=== PATIENT | male | born 1960 | race African-American/Black ===

== ENCOUNTER 2018-03-08 10:23 | Inpatient (IN) | payer OTHER ==
[2018-03-08 12:15] VITALS: BMI 26.4
--- NOTE | 2018-03-08 12:39 | HP ---
CIWA Score - CIWA Score Nausea/Vomitin Muscle Tremors: 2 Anxiety: 2 Agitation: 2 Paroxysmal Sweats: 1-Minimal Palms Moist Orientation: 0-Oriented Tacttile Disturbances: 1-Very Mild Itch/Numbness Auditory Disturbances: 1-Very Mild Visual Disturbances: 0-None Headache: 2-Mild CIWA-Ar Total Score: 13 CIWA Score Nausea/Vomitin Muscle Tremors: 2 Anxiety: 2 Agitation: 2 Paroxysmal Sweats: 1-Minimal Palms Moist Orientation: 0-Oriented Tacttile Disturbances: 1-Very Mild Itch/Numbness Auditory Disturbances: 1-Very Mild Visual Disturbances: 0-None Headache: 2-Mild CIWA-Ar Total Score: 13 - Admission Criteria Patient presents the following: CIWA greater than 12 Admission Criteria Met: Admission criteria met Admission ROS BHS - HPI Chief Complaint: i need help to stop drinking alcohol Allergies/Adverse Reactions: Allergies Allergy/AdvReac Type Severity Reaction Status Date / Time No Known Allergies Allergy Verified 03/08/18 12:16 History of Present Illness: this 57 years old male with alcohol dependence,seeking detox,withdrawal symptom, has been attending out patient program at [facility] but failed,refer for detox history of fatty liver ,had liver biposy in 1997 right inguinal hernia repair at age of 15 syncope alcohol related positive ppd fracture of fx right ankle at age of 12 years treated with uti no significant period of sobriety history of hypokalemia and hypomagnsemia Exam Limitations: No Limitations - Ebola screening Have you traveled outside of the country in the last 21 days: No Have you had contact with anyone from an Ebola affected area: No Have you been sick,other than usual withdrawal symptoms: No Do you have a fever: No - Review of Systems Constitutional: Loss of Appetite, Malaise, Night Sweats, Changes in sleep, Weakness EENT: reports: Nose Congestion Respiratory: reports: No Symptoms reported Cardiac: reports: Palpitations GI: reports: Nausea, Poor Appetite, Vomiting, Abdominal cramping : reports: No Symptoms Reported, Other (treated with uti) Musculoskeletal: reports: Back Pain, Muscle Pain Integumentary: reports: Dryness Endocrine: reports: No Symptoms Reported Hematology: reports: No Symptoms Reported Psychiatric: reports: No Sypmtoms Reported, Judgement Intact, Mood/Affect Appropiate, Orientated x3 Patient History - Patient Medical History Hx Anemia: No Hx Asthma: No Hx Chronic Obstructive Pulmonary Disease (COPD): No Hx Cancer: No Hx Cardiac Disorders: No Hx Congestive Heart Failure: No Hx Hypertension: No Hx Hypercholesterolemia: No Hx Pacemaker: No HX Cerebrovascular Accident: No Hx Seizures: No Hx Dementia: No Hx Diabetes: No Hx Gastrointestinal Disorders: No Hx Liver Disease: Yes (fatty liver had liver biopsy don glenys 1997) Hx Genitourinary Disorders: Yes (uti treated with nitrofurantin) Hx Sexually Transmitted Disorders: No Hx Renal Disease (ESRD): No Hx Thyroid Disease: No Hx Human Immunodeficiency Virus (HIV): No (never been tested,do not want the test done) Hx Hepatitis C: No Hx Depression: No Hx Suicide Attempt: No Hx Bipolar Disorder: No Hx Schizophrenia: No Other Medical History: no suicidal,no homicidal,fx of right ankle at age of 12 years, - Patient Surgical History Past Surgical History: Yes Hx Abdominal Surgery: Yes (right inguinal hernia repair af age of 12 years) Other Surgical History: biposy of liver in 1997 - PPD History Previous Implant?: Yes Documented Results: Positive w/o proof Implanted On Prior R Admission?: No PPD to be Administered?: No - Smoking Cessation Smoking history: Never smoked - Substance & Tx. History Hx Alcohol Use: Yes Hx Substance Use: No Substance Use Type: Alcohol Hx Substance Use Treatment: No - Substances Abused Alcohol-gin Route: Oral Frequency: Daily Amount used: 1 pt. Age of first use: 12 Date of Last Use: 03/07/18 Family Disease History - Family Disease History Family History: Denies Admission Physical Exam BHS - Vital Signs Vital Signs: Vital Signs - 24 hr 03/08/18 12:12 Temperature 97 F L Pulse Rate 112 H Respiratory 20 Rate Blood Pressure 155/97 - Physical General Appearance: Yes: Moderate Distress, Tremorous, Irritable, Sweating, Anxious HEENTM: Yes: Normal ENT Inspection, EDOUARD, Pharynx Normal Respiratory: Yes: Lungs Clear, Normal Breath Sounds, No Respiratory Distress Neck: Yes: Within Normal Limits, Supple, Trachea in good position Breast: Yes: Within Normal Limits Cardiology: Yes: Tachycardia Abdominal: Yes: Within Normal Limits, Normal Bowel Sounds, Non Tender, Flat, Soft Genitourinary: Yes: Other (uti on medication) Back: Yes: Muscle Spasm Extremities: Yes: Normal Inspection, Normal Range of Motion, Tremors Neurological: Yes: rig welder II-XII NML intact, Fully Oriented, Alert, Motor Strength 5/5, Normal Mood/Affect, Normal Response Integumentary: Yes: Dry Lymphatic: Yes: Within Normal Limits - Diagnostic (1) Alcohol dependence with uncomplicated withdrawal Status: Acute (2) Alcohol dependence with uncomplicated intoxication Status: Acute (3) Syncope Status: Acute (4) Fatty liver Status: Chronic (5) UTI (urinary tract infection) Status: Acute (6) History of right inguinal hernia repair Status: Acute (7) History of fracture of right ankle Status: Acute (8) History of liver biopsy Status: Acute (9) Hypomagnesemia Status: Acute (10) History of hypokalemia Status: Acute Cleared for Admission [facility] - Detox or Rehab [facility] Level of Care: Medically Managed Detox Regimen/Protocol: Librium [facility] Breath Alcohol Content Breath Alcohol Content: 0.148
[2018-03-08] MEDS ORDERED: MAG HYDROX/AL HYDROX/SIMETH 30 ML UNIT-DOSE CUP PO PRN (12:50)
[2018-03-08] MEDS ORDERED: hydrOXYzine PAMOATE 50 MG CAPSULE (FP) PO PRN (12:50)
[2018-03-08] MEDS ORDERED: IBUPROFEN 400 MG TABLET (FP) PO PRN (12:50)
[2018-03-08] MEDS ORDERED: guaiFENesin/D-METHORPHAN HB 10 ML UNIT-DOSE CUPS PO PRN (12:50)
[2018-03-08] MEDS ORDERED: chlordiazePOXIDE HCL 25 MG CAPSULE PO PRN (12:50)
[2018-03-08] MEDS ORDERED: P-EPHED 60MG/TRIPROLIDI 2.5MG TABLET PO PRN (12:50)
[2018-03-08] MEDS ORDERED: LOPERAMIDE HCL 2 MG CAPSULE PO PRN (12:50)
[2018-03-08] MEDS ORDERED: MAGNESIUM CITRATE 300 ML BOTTLE PO PRN (12:50)
[2018-03-08] MEDS ORDERED: MENTHOL/PHENOL 1 EACH UD MM PRN (12:50)
[2018-03-08] MEDS ORDERED: MAGNESIUM HYDROX 2400MG/30ML ORAL SUSPENSION 30 ML CUP PO PRN (12:50)
--- NOTE | 2018-03-08 15:10 | EKG ---
Test Reason : Blood Pressure : / mmHG Vent. Rate : 104 BPM Atrial Rate : 104 BPM P-R Int : 142 ms QRS Dur : 098 ms QT Int : 358 ms P-R-T Axes : 060 -13 059 degrees QTc Int : 470 ms SINUS TACHYCARDIA OTHERWISE NORMAL ECG NO PREVIOUS ECGS AVAILABLE Confirmed by BRANDY PEDROZA MD ([id number]) on 03/08/2018 3:09:51 PM Referred By: Confirmed By:BRANDY PEDROZA MD
[2018-03-08] MEDS: chlordiazePOXIDE HCL 25 MG CAPSULE PO SCH ×2 (17:27→22:10)
[2018-03-08] MEDS: ACETAMINOPHEN 325 MG TABLET (FP) PO PRN (17:28)
[2018-03-08] MEDS ORDERED: NITROFURANTOIN MACROCRYSTAL 50 MG CAPSULE (FP) PO SCH (18:00)
[2018-03-08 21:04] LABS: URINE APPEARANCE TURBID; URINE BILIRUBIN NEGATIVE (<2.0 mg/dL); URINE COLOR YELLOW; URINE GLUCOSE (UA) NEGATIVE (NEGATIVE); URINE KETONE NEGATIVE (NEGATIVE); URINE LEUK ESTERASE TRACE (NEGATIVE); URINE NITRITE NEGATIVE (NEGATIVE); URINE PROTEIN NEGATIVE (NEGATIVE); URINE UROBILINOGEN NEGATIVE mg/dL (0.2-1.0)
[2018-03-08] MEDS ORDERED: PATIENT'S OWN MEDICATION (NON-FORMULARY) (Nitrofurantoin Monohyd/M-Cryst [Nitrofurantoin M PO SCH (22:00)
[2018-03-08] MEDS: THIAMINE HCL 100 MG TABLET (FP) PO SCH (22:11)
[2018-03-09] MEDS: chlordiazePOXIDE HCL 25 MG CAPSULE PO SCH ×4 (06:08→22:17)
[2018-03-09] MEDS: PRENATAL VITAMINS W/ FOLIC ACID TABLET (FP) PO SCH (09:53)
[2018-03-09] MEDS: MAGNESIUM OXIDE 400 MG TABLET (FP) PO SCH (09:53)
[2018-03-09 10:41] LABS: HEMATOCRIT 45.3 % (35.4-49); HEMOGLOBIN 14.8 GM/dL (11.7-16.9); MCH 31.1 pg (25.7-33.7); MCHC 32.6 g/dl (32.0-35.9); MEAN CELL VOLUME 95.3 fl (80-96); RBC 4.75 M/mm3 (4.00-5.60); RDW 13.4 % (11.9-15.9); WHITE BLOOD COUNT 8.1 K/mm3 (4.0-10.0)
[2018-03-09 10:44] LABS: ALBUMIN 4.1 g/dl (3.4-5.0); ALK PHOS 85 U/L (45-117); ANION GAP 13 MMOL/L (8-16); BLOOD UREA NITROGEN 10 mg/dL (7-18); CHLORIDE 102 mmol/L (98-107); CO2 25 mmol/L (21-32); CREATININE 0.7 mg/dL (0.55-1.3); GLUCOSE,RANDOM 101 mg/dL (74-106); MAGNESIUM 1.9 mg/dL (1.8-2.4); POTASSIUM 3.7 mmol/L (3.5-5.1); SGOT/AST 64 U/L (15-37); SGPT/ALT 32 U/L (13-61); SODIUM 140 mmol/L (136-145); TOT PROT 8.6 g/dl (6.4-8.2)
--- NOTE | 2018-03-09 12:14 | PN ---
S CIWA - CIWA Score Nausea/Vomitin Muscle Tremors: 4-Moderate,w/Arms Extend Anxiety: 4-Mod. Anxious/Guarded Agitation: 3 Paroxysmal Sweats: 3 Orientation: 0-Oriented Tacttile Disturbances: 1-Very Mild Itch/Numbness Auditory Disturbances: 0-None Visual Disturbances: 1-Very Mild Sensitivity Headache: 0-None Present CIWA-Ar Total Score: 18 BHS Progress Note (SOAP) Subjective: Back pain, tremor, interrupted sleep Objective: 03/09/18 12:09 Last Vital Signs Temp Pulse Resp BP Pulse Ox 98.4 F 98 H 18 126/79 03/09/18 09:37 03/09/18 11:00 03/09/18 11:00 03/09/18 09:37 Laboratory Tests 03/08/18 03/09/18 03/09/18 14:35 05:40 05:40 WBC 8.1 RBC 4.75 Hgb 14.8 Hct 45.3 MCV 95.3 MCH 31.1 MCHC 32.6 RDW 13.4 Sodium 140 Potassium 3.7 Chloride 102 Carbon Dioxide 25 Anion Gap 13 BUN 10 Creatinine 0.7 Creat Clearance w eGFR > 60 Random Glucose 101 Calcium 9.0 Magnesium 1.9 Total Bilirubin 1.0 AST 64 H ALT 32 Alkaline Phosphatase 85 Total Protein 8.6 H Albumin 4.1 Urine Color Yellow Urine Appearance Turbid Urine pH 5.0 Ur Specific [place] 1.023 Urine Protein Negative Urine Glucose (UA) Negative Urine Ketones Negative Urine Blood 1+ H Urine Nitrite Negative Urine Bilirubin Negative Urine Urobilinogen Negative Ur Leukocyte Esterase Trace Urine WBC (Auto) 117 Urine RBC (Auto) 2 RPR Titer 03/09/18 05:40 WBC RBC Hgb Hct MCV MCH MCHC RDW Sodium Potassium Chloride Carbon Dioxide Anion Gap BUN Creatinine Creat Clearance w eGFR Random Glucose Calcium Magnesium Total Bilirubin AST ALT Alkaline Phosphatase Total Protein Albumin Urine Color Urine Appearance Urine pH Ur Specific [place] Urine Protein Urine Glucose (UA) Urine Ketones Urine Blood Urine Nitrite Urine Bilirubin Urine Urobilinogen Ur Leukocyte Esterase Urine WBC (Auto) Urine RBC (Auto) RPR Titer Nonreactive Labs reviewed: abnormal UA Assessment: 03/09/18 12:13 Withdrawal symptoms Noted with abnormal UA Plan: Continue detox Abnormal UA: encouraged PO water intake, repeat UA
[2018-03-09 14:53] LABS: SICKLE CELL SCREEN POSITIVE (NEGATIVE)
[2018-03-09] MEDS: ACETAMINOPHEN 325 MG TABLET (FP) PO PRN (18:03)
[2018-03-09] MEDS: THIAMINE HCL 100 MG TABLET (FP) PO SCH (22:17)
[2018-03-09] MEDS: MELATONIN 5 MG TABLETS PO PRN (22:17)
[2018-03-10] MEDS: chlordiazePOXIDE HCL 25 MG CAPSULE PO SCH ×2 (05:26→10:19)
[2018-03-10] MEDS: PRENATAL VITAMINS W/ FOLIC ACID TABLET (FP) PO SCH (10:19)
[2018-03-10] MEDS: MAGNESIUM OXIDE 400 MG TABLET (FP) PO SCH (10:19)
--- NOTE | 2018-03-10 10:52 | PN ---
[facility] CIWA - CIWA Score Nausea/Vomitin-No Nausea/No Vomiting Muscle Tremors: 2 Anxiety: 3 Agitation: 3 Paroxysmal Sweats: 2 Orientation: 0-Oriented Tacttile Disturbances: 1-Very Mild Itch/Numbness Auditory Disturbances: 0-None Visual Disturbances: 0-None Headache: 0-None Present CIWA-Ar Total Score: 11 BHS Progress Note (SOAP) Subjective: anxious, interrupted sleep Objective: 03/10/18 12:56 Vital Signs Temperature 98.2 F 03/10/18 09:19 Pulse Rate 118 H 03/10/18 09:19 Respiratory Rate 20 03/10/18 09:19 Blood Pressure 112/73 03/10/18 09:19 O2 Sat by Pulse Oximetry (%) Laboratory Last Values WBC 8.1 K/mm3 (4.0-10.0) 03/09/18 05:40 RBC 4.75 M/mm3 (4.00-5.60) 03/09/18 05:40 Hgb 14.8 GM/dL (11.7-16.9) 03/09/18 05:40 Hct 45.3 % (35.4-49) 03/09/18 05:40 MCV 95.3 fl (80-96) 03/09/18 05:40 MCH 31.1 pg (25.7-33.7) 03/09/18 05:40 MCHC 32.6 g/dl (32.0-35.9) 03/09/18 05:40 RDW 13.4 % (11.9-15.9) 03/09/18 05:40 Plt Count Customer Sales Advisor 03/09/18 05:40 Sickle Cell Screen Positive (NEGATIVE) 03/09/18 05:40 Sodium 140 mmol/L (136-145) 03/09/18 05:40 Potassium 3.7 mmol/L (3.5-5.1) 03/09/18 05:40 Chloride 102 mmol/L (98-107) 03/09/18 05:40 Carbon Dioxide 25 mmol/L (21-32) 03/09/18 05:40 Anion Gap 13 MMOL/L (8-16) 03/09/18 05:40 BUN 10 mg/dL (7-18) 03/09/18 05:40 Creatinine 0.7 mg/dL (0.55-1.3) 03/09/18 05:40 Creat Clearance w eGFR > 60 (>60) 03/09/18 05:40 Random Glucose 101 mg/dL (74-106) 03/09/18 05:40 Calcium 9.0 mg/dL (8.5-10.1) 03/09/18 05:40 Magnesium 1.9 mg/dL (1.8-2.4) 03/09/18 05:40 Total Bilirubin 1.0 mg/dL (0.2-1) 03/09/18 05:40 AST 64 U/L (15-37) H 03/09/18 05:40 ALT 32 U/L (13-61) 03/09/18 05:40 Alkaline Phosphatase 85 U/L (45-117) 03/09/18 05:40 Total Protein 8.6 g/dl (6.4-8.2) H 03/09/18 05:40 Albumin 4.1 g/dl (3.4-5.0) 03/09/18 05:40 Urine Color Yellow 03/08/18 14:35 Urine Appearance Turbid 03/08/18 14:35 Urine pH 5.0 (5.0-8.0) 03/08/18 14:35 Ur Specific [place] 1.023 (1.010-1.035) 03/08/18 14:35 Urine Protein Negative (NEGATIVE) 03/08/18 14:35 Urine Glucose (UA) Negative (NEGATIVE) 03/08/18 14:35 Urine Ketones Negative (NEGATIVE) 03/08/18 14:35 Urine Blood 1+ (NEGATIVE) H 03/08/18 14:35 Urine Nitrite Negative (NEGATIVE) 03/08/18 14:35 Urine Bilirubin Negative (<2.0 mg/dL) 03/08/18 14:35 Urine Urobilinogen Negative mg/dL (0.2-1.0) 03/08/18 14:35 Ur Leukocyte Esterase Trace (NEGATIVE) 03/08/18 14:35 Urine WBC (Auto) 117 /hpf (3-5) 03/08/18 14:35 Urine RBC (Auto) 2 /hpf (0-3) 03/08/18 14:35 RPR Titer Nonreactive (NONREACTIVE) 03/09/18 05:40 Aox3 no distress ambulatory in the unit, full ROM Assessment: 03/10/18 12:56 withdrawal sx Plan: increase fluids continue detox continue to monitor
[2018-03-10] MEDS: chlordiazePOXIDE 5 MG CAPSULE PO SCH ×2 (17:12→22:35)
[2018-03-10 19:27] LABS: URINE APPEARANCE CLEAR; URINE BILIRUBIN NEGATIVE (<2.0 mg/dL); URINE COLOR YELLOW; URINE GLUCOSE (UA) NEGATIVE (NEGATIVE); URINE KETONE NEGATIVE (NEGATIVE); URINE LEUK ESTERASE TRACE (NEGATIVE); URINE NITRITE NEGATIVE (NEGATIVE); URINE PROTEIN NEGATIVE (NEGATIVE); URINE UROBILINOGEN 4.0 E.U/dl mg/dL (0.2-1.0)
[2018-03-10 19:45] LABS: EPI CELLS RARE /HPF (FEW)
[2018-03-10] MEDS: MELATONIN 5 MG TABLETS PO PRN (22:35)
[2018-03-10] MEDS: THIAMINE HCL 100 MG TABLET (FP) PO SCH (22:35)
[2018-03-11] MEDS: chlordiazePOXIDE 5 MG CAPSULE PO SCH ×2 (05:55→10:08)
[2018-03-11] MEDS: MAGNESIUM OXIDE 400 MG TABLET (FP) PO SCH (10:08)
[2018-03-11] MEDS: PRENATAL VITAMINS W/ FOLIC ACID TABLET (FP) PO SCH (10:08)
--- NOTE | 2018-03-11 16:21 | PN ---
BHS Progress Note (SOAP) Subjective: Denies any symptoms; patient is anxious Objective: 03/11/18 16:20 Last Vital Signs Temp Pulse Resp BP Pulse Ox 96.7 F L 114 H 20 134/87 03/11/18 14:01 03/11/18 14:01 03/11/18 14:01 03/11/18 14:01 Laboratory Tests 03/08/18 03/09/18 03/09/18 14:35 05:40 05:40 WBC 8.1 RBC 4.75 Hgb 14.8 Hct 45.3 MCV 95.3 MCH 31.1 MCHC 32.6 RDW 13.4 Plt Count Clinical Rehab Liaison Sickle Cell Screen Positive Sodium 140 Potassium 3.7 Chloride 102 Carbon Dioxide 25 Anion Gap 13 BUN 10 Creatinine 0.7 Creat Clearance w eGFR > 60 Random Glucose 101 Calcium 9.0 Magnesium 1.9 Total Bilirubin 1.0 AST 64 H ALT 32 Alkaline Phosphatase 85 Total Protein 8.6 H Albumin 4.1 Urine Color Yellow Urine Appearance Turbid Urine pH 5.0 Ur Specific [place] 1.023 Urine Protein Negative Urine Glucose (UA) Negative Urine Ketones Negative Urine Blood 1+ H Urine Nitrite Negative Urine Bilirubin Negative Urine Urobilinogen Negative Ur Leukocyte Esterase Trace Urine WBC (Auto) 117 Urine RBC (Auto) 2 Ur Epithelial Cells RPR Titer 03/09/18 03/10/18 05:40 08:39 WBC RBC Hgb Hct MCV MCH MCHC RDW Plt Count Sickle Cell Screen Sodium Potassium Chloride Carbon Dioxide Anion Gap BUN Creatinine Creat Clearance w eGFR Random Glucose Calcium Magnesium Total Bilirubin AST ALT Alkaline Phosphatase Total Protein Albumin Urine Color Yellow Urine Appearance Clear Urine pH 7.0 D Ur Specific [place] 1.008 L Urine Protein Negative Urine Glucose (UA) Negative Urine Ketones Negative Urine Blood Negative Urine Nitrite Negative Urine Bilirubin Negative Urine Urobilinogen 4.0 e.u/dl Ur Leukocyte Esterase Trace Urine WBC (Auto) 3 Urine RBC (Auto) <1 Ur Epithelial Cells Rare RPR Titer Nonreactive Labs reviewed Assessment: 03/11/18 16:20 Withdrawal symptoms Plan: Continue detox Encouraged PO water intake
[2018-03-11] MEDS: chlordiazePOXIDE HCL 10 MG CAPSULE PO SCH ×2 (17:43→22:11)
[2018-03-11] MEDS: THIAMINE HCL 100 MG TABLET (FP) PO SCH (22:12)
[2018-03-11] MEDS: MELATONIN 5 MG TABLETS PO PRN (22:12)
[2018-03-12] MEDS: chlordiazePOXIDE HCL 10 MG CAPSULE PO SCH (05:33)
[2018-03-12 06:13] VITALS: PULSE 87
[2018-03-12 09:21] VITALS: BP 130/78; TEMP 96.7
--- NOTE | 2018-03-12 13:07 | DS ---
[facility] Detox Discharge Summary Admission Date: 03/08/18 Discharge Date: 03/12/18 - History Additional Comments: Pt completed detox. D/c home, will do aftercare by attending outpatient meetings. - Physical Exam Results Vital Signs: Vital Signs Temperature 96.7 F L 03/12/18 09:20 Pulse Rate 87 03/12/18 09:20 Respiratory Rate 18 03/12/18 09:20 Blood Pressure 130/78 03/12/18 09:20 O2 Sat by Pulse Oximetry (%) Pertinent Admission Physical Exam Findings: withdrawal sx - Treatment Hospital Course: Detox Protocol Followed, Detoxed Safely, Responded well, Discharged Condition Good, Rehab Referral Accepted - Medication Discharge Medications: Ambulatory Orders Acetaminophen [Tylenol] 325 mg PO DAILY PRN 03/08/18 Folic Acid - 1 mg PO DAILY 03/08/18 Magnesium Oxide [Mag-Ox -] 400 mg PO DAILY 03/08/18 Nitrofurantoin Monohyd/M-Cryst [Nitrofurantoin Harnett-Mcr 100 mg] 100 mg PO BID Potassium Chloride [Klor-Con 10] 10 meq PO DAILY 03/08/18 Thiamine HCl [Vitamin B1] 100 mg PO DAILY 03/08/18 - AMA Did Patient Leave Against Medical Advice: No
== END 2018-03-12 09:45 | disposition home or self-care (01) | DRG 775 ==
LOC: YASAS 10:23 → Y3N 12:51
PROC: HZ2ZZZZ Detoxification Services for Substance Abuse Treatment (ICD-10-PCS; principal; 2018-03-08)
DX: F10.230 Alcohol dependence with withdrawal, uncomplicated (principal); F10.220 Alcohol dependence with intoxication, uncomplicated; K76.0 Fatty (change of) liver, not elsewhere classified; R82.90 Unspecified abnormal findings in urine; R76.11 Nonspecific reaction to tuberculin skin test without active tuberculosis; R00.0 Tachycardia, unspecified; N39.0 Urinary tract infection, site not specified; E83.42 Hypomagnesemia
CPT/HCPCS: 36415; 71046-TC-FY; 80053; 81003; 81015; 83021; 83735; 85027; 85660; 86593; 93005; 93010

== ENCOUNTER 2018-03-26 13:21 | Inpatient (IN) | payer OTHER ==
[2018-03-26 13:45] VITALS: BMI 26.4
--- NOTE | 2018-03-26 18:17 | HP ---
CIWA Score - Admission Criteria [facility] Guidelines: Admission for Medically Managed Detox: Requires at least one of the followin. CIWA greater than 12 2. Seizures within the past 24 hours 3. Delirium tremens within the past 24 hours 4. Hallucinations within the past 24 hours 5. Acute intervention needed for co occurring medical disorder 6. Acute intervention needed for co occurring psychiatric disorder 7. Severe withdrawal that cannot be handled at a lower level of care (continued vomiting, continued diarrhea, abnormal vital signs) requiring intravenous medication and/or fluids 8. Admission ROS S - HPI Chief Complaint: States he is here for rehab- says he was asked by [facility] to come to rehab b/c they found alcohol in his urine. Pt was referred to [facility] for DWI. Pt was here for detox about 2 weeks ago- since discharge pt states using 1/2 pint of gin/day, prior to detox pt was drinking 1 pint a day. Pt states he is not in withdrawal and his last drink was yesterday. Has never had seizures or DT 's from alcohol use Utox- positive benzo (prior detox), ZOHAIB- neg DUR/ISTOP: negative for controlled substances Allergies/Adverse Reactions: Allergies Allergy/AdvReac Type Severity Reaction Status Date / Time No Known Allergies Allergy Verified 03/26/18 17:01 - Ebola screening Have you been sick,other than usual withdrawal symptoms: No - Review of Systems Constitutional: No Symptoms Reported EENT: reports: No Symptoms Reported Respiratory: reports: No Symptoms reported Cardiac: reports: No Symptoms Reported GI: reports: No Symptoms Reported : reports: No Symptoms Reported Musculoskeletal: reports: Back Pain Integumentary: reports: No Symptoms Reported Neuro: reports: No Symptoms reported Endocrine: reports: No Symptoms Reported Hematology: reports: No Symptoms Reported Psychiatric: reports: No Sypmtoms Reported Patient History - Patient Medical History Hx Anemia: No Hx Asthma: No Hx Chronic Obstructive Pulmonary Disease (COPD): No Hx Cancer: No Hx Cardiac Disorders: No Hx Congestive Heart Failure: No Hx Hypertension: No Hx Hypercholesterolemia: No Hx Pacemaker: No HX Cerebrovascular Accident: No Hx Seizures: No Hx Dementia: No Hx Diabetes: No Hx Gastrointestinal Disorders: No Hx Liver Disease: Yes (fatty liver had liver biopsy fadia veronica 1997) Hx Genitourinary Disorders: No Hx Sexually Transmitted Disorders: No Hx Renal Disease (ESRD): No Hx Thyroid Disease: No Hx Human Immunodeficiency Virus (HIV): No (never been tested,do not want the test done) Hx Hepatitis C: No Hx Depression: No Hx Suicide Attempt: No Hx Bipolar Disorder: No Hx Schizophrenia: No - Patient Surgical History Past Surgical History: Yes Hx Neurologic Surgery: No Hx Cataract Extraction: No Hx Cardiac Surgery: No Hx Lung Surgery: No Hx Breast Surgery: No Hx Breast Biopsy: No Hx Abdominal Surgery: Yes (right inguinal hernia repair af age of 12 years) Hx Appendectomy: No Hx Cholecystectomy: No Hx Genitourinary Surgery: No Hx Section: No Hx Orthopedic Surgery: No Other Surgical History: biposy of liver in 1997 Anesthesia Reaction: No - PPD History Previous Implant?: Yes Documented Results: Positive w/proof Implanted On Prior R Admission?: No - Smoking Cessation Smoking history: Never smoked Have you smoked in the past 12 months: No If you are a former smoker, when did you quit?: 15 years ago Hx Chewing Tobacco Use: No - Substances Abused Alcohol Route: Oral Frequency: Daily Amount used: 1/2 PINT GIN Age of first use: 18 Date of Last Use: 03/25/18 Family Disease History - Family Disease History Family Disease History: Other: Father (alcoholic), Mother (alcoholic) Admission Physical Exam BHS - Vital Signs Vital Signs: Vital Signs - 24 hr 03/26/18 13:43 Temperature 99.5 F Pulse Rate 119 H Respiratory 18 Rate Blood Pressure 148/92 - Physical General Appearance: Yes: Within Normal Limits HEENTM: Yes: Within Normal Limits, EOMI Respiratory: Yes: Within Normal Limits Neck: Yes: Within Normal Limits Breast: Yes: Breast Exam Deferred Cardiology: Yes: Within Normal Limits Abdominal: Yes: Within Normal Limits, Non Tender, Protuberent Genitourinary: Yes: Within Normal Limits (pt with diaper on- b/d urinary leaks per pt), Other Back: Yes: Within Normal Limits Musculoskeletal: Yes: Within Normal Limits, full range of Motion, Gait Steady Extremities: Yes: Within Normal Limits, Other (hyperpigmented, thickened toenails) Integumentary: Yes: Within Normal Limits Lymphatic: Yes: Within Normal Limits BHS Breath Alcohol Content Breath Alcohol Content: 0 Urine Drug Screen - Results Drug Screen Negative: No Urine Drug Screen Results: BZO-Benzodiazepines Inpatient Rehab Admission - Initial Determination Are CD services needed?: Yes Free of communicable disease: Yes Not in need of hospitalization: Yes - Rehab Admission Criteria Previous failed treatment: Yes Poor recovery environment: Yes Comorbidities: Yes Lacks judgement: No Patient is meeting Inpatient Rehab admission criteria:: Yes (Pt has an alcohol use disorder- )
[2018-03-26] MEDS ORDERED: LOPERAMIDE HCL 2 MG CAPSULE PO PRN (18:24)
[2018-03-26] MEDS ORDERED: MENTHOL/PHENOL 1 EACH UD MM PRN (18:24)
[2018-03-26] MEDS ORDERED: MAGNESIUM HYDROX 2400MG/30ML ORAL SUSPENSION 30 ML CUP PO PRN (18:24)
[2018-03-26] MEDS ORDERED: MAGNESIUM CITRATE 300 ML BOTTLE PO PRN (18:24)
[2018-03-26] MEDS ORDERED: P-EPHED 60MG/TRIPROLIDI 2.5MG TABLET PO PRN (18:24)
[2018-03-26] MEDS ORDERED: MAG HYDROX/AL HYDROX/SIMETH 30 ML UNIT-DOSE CUP PO PRN (18:24)
[2018-03-26] MEDS ORDERED: guaiFENesin/D-METHORPHAN HB 10 ML UNIT-DOSE CUPS PO PRN (18:24)
[2018-03-26] MEDS: NITROFURANTOIN MACROCRYSTAL 50 MG CAPSULE (FP) PO SCH ×2 (20:40→23:41)
[2018-03-26] MEDS: THIAMINE HCL 100 MG TABLET (FP) PO SCH (21:20)
[2018-03-27 02:58] LABS: URINE APPEARANCE CLEAR; URINE BILIRUBIN NEGATIVE (<2.0 mg/dL); URINE COLOR YELLOW; URINE GLUCOSE (UA) NEGATIVE (NEGATIVE); URINE KETONE TRACE (NEGATIVE); URINE LEUK ESTERASE 1+ (NEGATIVE); URINE NITRITE NEGATIVE (NEGATIVE); URINE PROTEIN 1+ (NEGATIVE); URINE UROBILINOGEN NEGATIVE mg/dL (0.2-1.0)
[2018-03-27 03:11] LABS: EPI CELLS RARE /HPF (FEW); URINE MUCUS RARE
[2018-03-27] MEDS: IBUPROFEN 400 MG TABLET (FP) PO PRN (06:23)
[2018-03-27] MEDS: PRENATAL VITAMINS W/ FOLIC ACID TABLET (FP) PO SCH (10:27)
[2018-03-27] MEDS: NITROFURANTOIN MACROCRYSTAL 50 MG CAPSULE (FP) PO SCH ×4 (10:27→21:17)
--- NOTE | 2018-03-27 10:36 | HP ---
Psychiatrist Admission - Data Date of interview: 03/27/18 Admission source: [facility] Identifying data: Patient is a 57 year old male, father of two, unemployed, is currently homeless and is supported by [facility]. This is patient's first admission to rehab at [facility]. Patient admitted to for alcohol dependence. Medical History: fatty liver had liver biopsy done in 1997, right inguinal hernia repair af age of 12 years Psychiatric History: Patient denies h/o psychiatric hospitalization, outpatient care, and suicide attempt. Physical/Sexual Abuse/Trauma History: denies. Vital Signs: Vital Signs - 24 hr 03/26/18 03/27/18 03/27/18 13:43 00:30 03:30 Temperature 99.5 F Pulse Rate 119 H Respiratory 18 18 18 Rate Blood Pressure 148/92 03/27/18 06:46 Temperature 98.3 F Pulse Rate 106 H Respiratory 18 Rate Blood Pressure 137/90 Allergies/Adverse Reactions: Allergies Allergy/AdvReac Type Severity Reaction Status Date / Time No Known Allergies Allergy Verified 03/26/18 17:01 Date of last physical exam: 03/26/18 Concur with the findings of this exam: Yes - Substance Abuse/Tx History Hx Alcohol Use: Yes (1/2 pint daily) Hx Substance Use: No Hx Substance Use Treatment: No Mental Status Exam - Mental Status Exam Alert and Oriented to: Time, Place, Person Cognitive Function: Good Patient Appearance: Well Groomed Mood: Hopeful, Euthymic Affect: Appropriate, Mood Congruent Patient Behavior: Appropriate, Cooperative Speech Pattern: Clear, Appropriate Voice Loudness: Normal Thought Process: Intact, Goal Oriented Thought Disorder: Not Present Hallucinations: Denies Suicidal Ideation: Denies Homicidal Ideation: Denies Insight/Judgement: Poor Sleep: Fair Appetite: Fair Muscle strength/Tone: Normal Gait/Station: Normal Psychiatric Findings - Problem List ([place] 1, 2,3) (1) Alcohol dependence Current Visit: Yes Status: Acute (2) Alcohol use disorder Current Visit: Yes Status: Acute - Initial Treatment Plan Initial Treatment Plan: Psychoeducation provided. Detoxification in progress. Observation.
[2018-03-27] MEDS: POTASSIUM CHLORIDE TABS 10 MEQ TABLET.ER (FP) PO SCH (11:59)
[2018-03-27 15:15] LABS: HEMATOCRIT 44.3 % (35.4-49); HEMOGLOBIN 15.2 GM/dL (11.7-16.9); MCHC 34.3 g/dl (32.0-35.9); MEAN CELL VOLUME 93.3 fl (80-96); MEAN PLT VOLUME 9.4 fl (7.5-11.1); PLATELET COUNT 184 K/MM3 (134-434); RBC 4.75 M/mm3 (4.00-5.60); RDW 13.5 % (11.9-15.9)
[2018-03-27 15:26] LABS: ALBUMIN 4.1 g/dl (3.4-5.0); ALK PHOS 73 U/L (45-117); ANION GAP 10 MMOL/L (8-16); BILIRUBIN,TOTAL 0.9 mg/dL (0.2-1); BLOOD UREA NITROGEN 10 mg/dL (7-18); CALCIUM 9.6 mg/dL (8.5-10.1); CHLORIDE 94 mmol/L (98-107); CO2 30 mmol/L (21-32); GLUCOSE,RANDOM 118 mg/dL (74-106); SGOT/AST 39 U/L (15-37); SGPT/ALT 28 U/L (13-61); SODIUM 135 mmol/L (136-145); TOT PROT 9.2 g/dl (6.4-8.2)
[2018-03-27] MEDS: THIAMINE HCL 100 MG TABLET (FP) PO SCH (21:14)
[2018-03-27] MEDS: ACETAMINOPHEN 325 MG TABLET (FP) PO PRN (21:15)
[2018-03-27] MEDS: MELATONIN 5 MG TABLETS PO PRN (21:16)
[2018-03-28] MEDS: ACETAMINOPHEN 325 MG TABLET (FP) PO PRN ×3 (06:16→21:12)
[2018-03-28] MEDS: PRENATAL VITAMINS W/ FOLIC ACID TABLET (FP) PO SCH (10:01)
[2018-03-28] MEDS: NITROFURANTOIN MACROCRYSTAL 50 MG CAPSULE (FP) PO SCH ×4 (10:01→21:11)
[2018-03-28] MEDS: POTASSIUM CHLORIDE TABS 10 MEQ TABLET.ER (FP) PO SCH (10:02)
[2018-03-28 11:20] LABS: RPR REACTIVE 1:2 (NONREACTIVE)
--- NOTE | 2018-03-28 11:37 | PN ---
[facility] Progress Note Note: RPR REACTIVE AND MHA PENDING Laboratory Tests 03/26/18 03/27/18 03/27/18 23:50 09:53 09:53 WBC 7.0 RBC 4.75 Hgb 15.2 Hct 44.3 MCV 93.3 MCH 32.0 MCHC 34.3 RDW 13.5 Plt Count 184 MPV 9.4 Sodium 135 L Potassium 4.0 Chloride 94 L Carbon Dioxide 30 Anion Gap 10 BUN 10 Creatinine 1.0 Creat Clearance w eGFR > 60 Random Glucose 118 H Calcium 9.6 Total Bilirubin 0.9 AST 39 H ALT 28 Alkaline Phosphatase 73 Total Protein 9.2 H Albumin 4.1 Urine Color Yellow Urine Appearance Clear Urine pH 5.0 D Ur Specific [place] 1.024 Urine Protein 1+ H Urine Glucose (UA) Negative Urine Ketones Trace H Urine Blood Negative Urine Nitrite Negative Urine Bilirubin Negative Urine Urobilinogen Negative Ur Leukocyte Esterase 1+ H Urine WBC (Auto) 31 Urine RBC (Auto) 1 Ur Epithelial Cells Rare Urine Mucus Rare RPR Titer 03/27/18 09:53 WBC RBC Hgb Hct MCV MCH MCHC RDW Plt Count MPV Sodium Potassium Chloride Carbon Dioxide Anion Gap BUN Creatinine Creat Clearance w eGFR Random Glucose Calcium Total Bilirubin AST ALT Alkaline Phosphatase Total Protein Albumin Urine Color Urine Appearance Urine pH Ur Specific [place] Urine Protein Urine Glucose (UA) Urine Ketones Urine Blood Urine Nitrite Urine Bilirubin Urine Urobilinogen Ur Leukocyte Esterase Urine WBC (Auto) Urine RBC (Auto) Ur Epithelial Cells Urine Mucus RPR Titer Reactive 1:2 H D MHA PENDING PT WAS NONREACTIVE ON 03/09/18 WHILE IN DETOX. PT CAME BACK TO REHAB 03/26/18 AND RPR IS REACTIVE 1:2. FOLLOW UP WITH [facility] ADDENEDUM:FOLLOW UP TO ABOVE INFORMATION, PT REPORTS HE HAS A HX OF SYPHILIS ABOUT 30 YRS AND RECIEVED TREATMENT-ONE SHOT IN A HOSPITAL IN [place] AND MOVED TO [facility] THEN WAS REFERRED TO [facility] WHERE HE STATES HE RECEIVED 3 SHOTS. DENIES RE- EXPOSURE OR ANY SYMPTOMS..
[2018-03-28 14:01] LABS: TREPONEMA ANTIBODY REACTIVE (NONREACTIVE)
--- NOTE | 2018-03-28 15:44 | EKG ---
Test Reason : Blood Pressure : / mmHG Vent. Rate : 090 BPM Atrial Rate : 090 BPM P-R Int : 156 ms QRS Dur : 090 ms QT Int : 392 ms P-R-T Axes : 053 -03 048 degrees QTc Int : 479 ms NORMAL SINUS RHYTHM NORMAL ECG WHEN COMPARED WITH ECG OF 08-MAR-2018 13:57, NO SIGNIFICANT CHANGE WAS FOUND Confirmed by LEILANI CASILLAS MD ([id number]) on 03/28/2018 3:44:13 PM Referred By: Confirmed By:LEILANI CASILLAS MD
[2018-03-28] MEDS: MELATONIN 5 MG TABLETS PO PRN (21:11)
[2018-03-28] MEDS: THIAMINE HCL 100 MG TABLET (FP) PO SCH (21:11)
[2018-03-29] MEDS: IBUPROFEN 400 MG TABLET (FP) PO PRN ×3 (06:17→21:19)
[2018-03-29] MEDS: POTASSIUM CHLORIDE TABS 10 MEQ TABLET.ER (FP) PO SCH (09:50)
[2018-03-29] MEDS: NITROFURANTOIN MACROCRYSTAL 50 MG CAPSULE (FP) PO SCH ×4 (09:50→21:17)
[2018-03-29] MEDS: PRENATAL VITAMINS W/ FOLIC ACID TABLET (FP) PO SCH (09:50)
[2018-03-29] MEDS: THIAMINE HCL 100 MG TABLET (FP) PO SCH (21:18)
[2018-03-30] MEDS: NITROFURANTOIN MACROCRYSTAL 50 MG CAPSULE (FP) PO SCH ×4 (09:44→21:19)
[2018-03-30] MEDS: PRENATAL VITAMINS W/ FOLIC ACID TABLET (FP) PO SCH (09:44)
[2018-03-30] MEDS: POTASSIUM CHLORIDE TABS 10 MEQ TABLET.ER (FP) PO SCH (09:44)
[2018-03-30] MEDS: IBUPROFEN 400 MG TABLET (FP) PO PRN ×2 (09:45→17:45)
[2018-03-30] MEDS: THIAMINE HCL 100 MG TABLET (FP) PO SCH (21:19)
[2018-03-31] MEDS: NITROFURANTOIN MACROCRYSTAL 50 MG CAPSULE (FP) PO SCH ×4 (09:36→21:13)
[2018-03-31] MEDS: POTASSIUM CHLORIDE TABS 10 MEQ TABLET.ER (FP) PO SCH (09:36)
[2018-03-31] MEDS: PRENATAL VITAMINS W/ FOLIC ACID TABLET (FP) PO SCH (09:36)
[2018-03-31] MEDS: IBUPROFEN 400 MG TABLET (FP) PO PRN ×2 (09:38→17:44)
[2018-03-31] MEDS: THIAMINE HCL 100 MG TABLET (FP) PO SCH (21:13)
[2018-04-01] MEDS: POTASSIUM CHLORIDE TABS 10 MEQ TABLET.ER (FP) PO SCH (09:41)
[2018-04-01] MEDS: NITROFURANTOIN MACROCRYSTAL 50 MG CAPSULE (FP) PO SCH ×4 (09:42→21:06)
[2018-04-01] MEDS: PRENATAL VITAMINS W/ FOLIC ACID TABLET (FP) PO SCH (09:42)
[2018-04-01] MEDS: IBUPROFEN 400 MG TABLET (FP) PO PRN (09:43)
[2018-04-01] MEDS: THIAMINE HCL 100 MG TABLET (FP) PO SCH (21:06)
[2018-04-02] MEDS: IBUPROFEN 400 MG TABLET (FP) PO PRN (06:14)
[2018-04-02] MEDS: NITROFURANTOIN MACROCRYSTAL 50 MG CAPSULE (FP) PO SCH ×3 (10:13→17:28)
[2018-04-02] MEDS: POTASSIUM CHLORIDE TABS 10 MEQ TABLET.ER (FP) PO SCH (10:13)
[2018-04-02] MEDS: PRENATAL VITAMINS W/ FOLIC ACID TABLET (FP) PO SCH (10:13)
--- NOTE | 2018-04-02 11:37 | PN ---
BHS Progress Note Note: C/O LOWER BACK PAIN. Vital Signs 04/02/18 06:47 Temperature 98.7 F Pulse Rate 101 H Respiratory 18 Rate Blood Pressure 111/71 IMPRESSION:NAD CHRONIC LBP PLAN:LIDOCAINE PATCH DIRECTED.
[2018-04-02] MEDS ORDERED: LIDOCAINE 5% TOPICAL PATCH TP ONE (12:10)
[2018-04-02] MEDS: THIAMINE HCL 100 MG TABLET (FP) PO SCH (21:12)
[2018-04-02] MEDS: MELATONIN 5 MG TABLETS PO PRN (21:12)
[2018-04-02] MEDS: LIDOCAINE PATCH REMOVAL MC SCH (21:35)
[2018-04-02] MEDS ORDERED: LIDOCAINE PATCH REMOVAL MC SCH (22:00)
[2018-04-03] MEDS: IBUPROFEN 400 MG TABLET (FP) PO PRN ×2 (06:28→21:26)
[2018-04-03] MEDS: PRENATAL VITAMINS W/ FOLIC ACID TABLET (FP) PO SCH (10:16)
[2018-04-03] MEDS: LIDOCAINE 5% TOPICAL PATCH TP SCH (10:16)
[2018-04-03] MEDS: POTASSIUM CHLORIDE TABS 10 MEQ TABLET.ER (FP) PO SCH (11:04)
[2018-04-03] MEDS: THIAMINE HCL 100 MG TABLET (FP) PO SCH (21:25)
[2018-04-03] MEDS: MELATONIN 5 MG TABLETS PO PRN (21:25)
[2018-04-03] MEDS: LIDOCAINE PATCH REMOVAL MC SCH (21:46)
[2018-04-04] MEDS: IBUPROFEN 400 MG TABLET (FP) PO PRN ×2 (06:14→21:26)
[2018-04-04] MEDS: POTASSIUM CHLORIDE TABS 10 MEQ TABLET.ER (FP) PO SCH (09:53)
[2018-04-04] MEDS: PRENATAL VITAMINS W/ FOLIC ACID TABLET (FP) PO SCH (09:53)
[2018-04-04] MEDS: LIDOCAINE 5% TOPICAL PATCH TP SCH (09:54)
[2018-04-04] MEDS: THIAMINE HCL 100 MG TABLET (FP) PO SCH (21:24)
[2018-04-04] MEDS: MELATONIN 5 MG TABLETS PO PRN (21:25)
[2018-04-04] MEDS: LIDOCAINE PATCH REMOVAL MC SCH (22:24)
[2018-04-05] MEDS: IBUPROFEN 400 MG TABLET (FP) PO PRN ×2 (06:21→21:20)
[2018-04-05] MEDS: PRENATAL VITAMINS W/ FOLIC ACID TABLET (FP) PO SCH (10:15)
[2018-04-05] MEDS: LIDOCAINE 5% TOPICAL PATCH TP SCH (10:15)
[2018-04-05] MEDS: POTASSIUM CHLORIDE TABS 10 MEQ TABLET.ER (FP) PO SCH (10:51)
[2018-04-05] MEDS: THIAMINE HCL 100 MG TABLET (FP) PO SCH (21:19)
[2018-04-05] MEDS: MELATONIN 5 MG TABLETS PO PRN (21:20)
[2018-04-05] MEDS: LIDOCAINE PATCH REMOVAL MC SCH (23:00)
[2018-04-06] MEDS: IBUPROFEN 400 MG TABLET (FP) PO PRN (06:14)
[2018-04-06] MEDS: LIDOCAINE 5% TOPICAL PATCH TP SCH (10:14)
[2018-04-06] MEDS: PRENATAL VITAMINS W/ FOLIC ACID TABLET (FP) PO SCH (10:14)
[2018-04-06] MEDS: THIAMINE HCL 100 MG TABLET (FP) PO SCH (21:23)
[2018-04-06] MEDS: LIDOCAINE PATCH REMOVAL MC SCH (21:23)
[2018-04-07] MEDS: IBUPROFEN 400 MG TABLET (FP) PO PRN ×2 (06:38→23:52)
[2018-04-07] MEDS: PRENATAL VITAMINS W/ FOLIC ACID TABLET (FP) PO SCH (09:38)
[2018-04-07] MEDS: LIDOCAINE 5% TOPICAL PATCH TP SCH (09:38)
[2018-04-07] MEDS: LIDOCAINE PATCH REMOVAL MC SCH (21:19)
[2018-04-07] MEDS: THIAMINE HCL 100 MG TABLET (FP) PO SCH (21:19)
[2018-04-08] MEDS: IBUPROFEN 400 MG TABLET (FP) PO PRN ×2 (06:37→21:20)
[2018-04-08] MEDS: PRENATAL VITAMINS W/ FOLIC ACID TABLET (FP) PO SCH (09:44)
[2018-04-08] MEDS: LIDOCAINE 5% TOPICAL PATCH TP SCH (09:44)
--- NOTE | 2018-04-08 10:53 | PN ---
Psychiatric Progress Note Vital Signs: Vital Signs Period Temp Pulse Resp BP Sys/Wheat Pulse Ox Last 24 Hr 98.5 F 91 18-18 119/71 Date of Session: 04/09/18 Chief Complaint:: Discharge Note HPI: Patient addressing Alcohol Dependence ROS: PPD+ Current Medications: Active Medications Generic Name Dose Route Start Last Admin Trade Name Freq PRN Reason Stop Dose Admin Acetaminophen 650 mg 03/26/18 18:24 03/28/18 21:12 Tylenol - PO 650 mg Q4H PRN Administration FEVER Al Hydroxide/Mg Hydroxide 30 ml 03/26/18 18:24 Mylanta Oral Suspension - PO Q6H PRN DYSPEPSIA Eucalyptus/Menthol/Phenol/Sorbitol 1 each 03/26/18 18:24 Cepastat Lozenge - MM Q4H PRN SORE THROAT Guaifenesin 10 ml 03/26/18 18:24 Robitussin Dm - PO Q6H PRN COUGH Ibuprofen 400 mg 03/26/18 18:24 04/08/18 06:37 Motrin - PO 400 mg Q6H PRN Administration Pain level 4-6 Lidocaine 1 patch 04/03/18 10:00 04/08/18 09:44 Lidoderm Patch - TP 1 patch DAILY MOUSTAPHA Administration Loperamide HCl 4 mg 03/26/18 18:24 Imodium - PO Q6H PRN DIARRHEA Magnesium Citrate 300 ml 03/26/18 18:24 Citroma - PO Q48H PRN CONSTIPATION Magnesium Hydroxide 30 ml 03/26/18 18:24 Milk Of Magnesia - PO DAILY PRN CONSTIPATION Melatonin 5 mg 03/26/18 22:00 04/05/18 21:20 Melatonin PO 5 mg HS PRN Administration INSOMNIA Miscellaneous 1 each 04/02/18 22:00 04/07/18 21:19 Lidoderm Patch Removal MC 1 each DAILY@2200 MOUSTAPHA Administration Multivit/Folic Acid/Iron 1 tab 03/27/18 10:00 04/08/18 09:44 Vitamins (Sjr) - PO 1 tab DAILY MOUSTAPHA Administration Pseudoephedrine/Triprolidine 1 combo 03/26/18 18:24 Actifed - PO TID PRN NASAL CONGESTION Thiamine HCl 100 mg 03/26/18 22:00 04/07/18 21:19 Vitamin B1 - PO 100 mg HS MOUSTAPHA Administration Current Side Effect: No Lab tests ordered: Yes Lab tests reviewed: Yes Provider note:: Patient will complete this program on 04/10/18. He has met his treatment goals and will continue to address his issues in outpatient treatment at [facility] at [address] [place] [id number]. Told health underwriter that from his participation in this program, he has learned the importance of making meetings and have a sponsor. He is stable for discharge on 04/10/18 Total face to face time:: 35 Mental Status Exam - Mental Status Exam Alert and Oriented to: Time, Place, Person Cognitive Function: Fair Patient Appearance: Well Groomed Mood: Hopeful, Euthymic Affect: Appropriate Patient Behavior: Cooperative Speech Pattern: Clear Voice Loudness: Normal Thought Process: Intact Thought Disorder: Not Present Hallucinations: Denies Suicidal Ideation: Denies Homicidal Ideation: Denies Insight/Judgement: Fair Sleep: Fair Appetite: Good Muscle strength/Tone: Normal Gait/Station: Normal Psychiatric Treatment Plan - Problem List (1) Alcohol dependence Current Visit: Yes (2) PPD positive Current Visit: No Initial treatment plan: Patient will be discharged tomorrow and referred to [facility] in [facility] for outpatient treatment
[2018-04-08] MEDS: THIAMINE HCL 100 MG TABLET (FP) PO SCH (21:19)
[2018-04-08] MEDS: LIDOCAINE PATCH REMOVAL MC SCH (22:09)
[2018-04-09] MEDS: IBUPROFEN 400 MG TABLET (FP) PO PRN (06:15)
[2018-04-09] MEDS: LIDOCAINE 5% TOPICAL PATCH TP SCH (10:40)
[2018-04-09] MEDS: PRENATAL VITAMINS W/ FOLIC ACID TABLET (FP) PO SCH (10:40)
[2018-04-09] MEDS: ACETAMINOPHEN 325 MG TABLET (FP) PO PRN (21:15)
[2018-04-09] MEDS: THIAMINE HCL 100 MG TABLET (FP) PO SCH (21:15)
[2018-04-09] MEDS: LIDOCAINE PATCH REMOVAL MC SCH (21:16)
[2018-04-10 06:39] VITALS: BP 128/82; PULSE 78; TEMP 98.6
[2018-04-10] MEDS: PRENATAL VITAMINS W/ FOLIC ACID TABLET (FP) PO SCH (10:08)
[2018-04-10] MEDS: LIDOCAINE 5% TOPICAL PATCH TP SCH (10:09)
[2018-04-10] MEDS: ACETAMINOPHEN 325 MG TABLET (FP) PO PRN (10:11)
== END 2018-04-10 10:05 | disposition home or self-care (01) | DRG 772 ==
LOC: YASAS 13:21 → Y5N 18:29
PROVIDERS: ADMIT Psychiatry & Neurology Psychiatry; ATTEND Psychiatry & Neurology Psychiatry
PROC: HZ42ZZZ Group Counseling for Substance Abuse Treatment, Cognitive-Behavioral (ICD-10-PCS; principal; 2018-03-26)
DX: F10.20 Alcohol dependence, uncomplicated (principal); K76.0 Fatty (change of) liver, not elsewhere classified; M54.5 Low back pain; M54.41 Lumbago with sciatica, right side; M54.42 Lumbago with sciatica, left side; R76.11 Nonspecific reaction to tuberculin skin test without active tuberculosis; Z86.19 Personal history of other infectious and parasitic diseases; Z59.0 Homelessness
CPT/HCPCS: 36415; 80053; 81003; 81015; 85027; 86593; 86780; 93005; 93010